=== PATIENT | female | born 1965 | race Caucasian/White ===

== ENCOUNTER 2019-10-12 12:48 | Outpatient (CLI) | payer MEDICARE, OTHER ==
--- NOTE | 2019-10-12 15:10 | CT ---
CT CHEST WITHOUT CONTRAST: Axial tomograms are obtained with multiplanar reconstruction. Low-dose protocol was followed followi ng a screening protocol. INDICATION: History of tobacco use. Long history of smoking. COMPARISON: No comparison. FINDINGS: There is a 10 mm calcified nodule in the left apical region peripherally abutting the pleural surface . Mild chronic parenchymal changes. Interstitial thickening is prominent in the posterior lower lobes. No infiltrate or effusion. There is a pleural-based nodule measuring 7-8 mm medial aspect superior segment right lower lobe imag e 72 axial. A 4 mm nodule in the left lower lobe near the diaphragm, image 123 axial. A 3 mm nodule along the fissure laterally left mid lung, image 74 axial. Mediastinum unremarkable. Upper abdomen unremarkable. Osseous structures unremarkable. IMPRESSION: Lung RADS 3. Recommend followup noncontrast CT chest in 6 months to confirm stability of the 8 mm no dule described above. POS: AGW
== END 2019-10-12 12:49 | disposition home or self-care (01) ==
LOC: BICCT 12:48
PROVIDERS: ATTEND Family Medicine Sports Medicine
DX: Z12.2 Encounter for screening for malignant neoplasm of respiratory organs (principal); F17.210 Nicotine dependence, cigarettes, uncomplicated; R91.8 Other nonspecific abnormal finding of lung field
CPT/HCPCS: G0297

== ENCOUNTER 2020-05-12 13:50 | Outpatient (CLI) | payer MEDICARE, MEDICAID ==
--- NOTE | 2020-05-12 14:46 | CT ---
Chest CT without contrast: 05/12/2020 COMPARISON: Low-dose screening chest CT 10/12/2019 HISTORY: History of tobacco use, long history of smoking, reevaluate pulmonary nodule. TECHNIQUE: Routine noncontrast enhanced chest CT obtained at 5 mm intervals with 3 mm coronal and sag ittal reformatted imaging. In addition, high-resolution axial imaging was obtained with the patient in the supine and prone positions. FINDINGS: Lack of contrast limits assessment of the imaged viscera, the vascular structures, and for lymphadenopathy. Coronary arterial calcification and/or stent material present. Imaged upper abdomen grossly unremarkable. No discrete lymphadenopathy. No pleural, pericardial, or m ediastinal fluid. Stable lateral subcentimeter calcified granuloma in left upper lobe on image 12 and stable 2-3 mm nod ule and lateral aspect of left upper lobe on axial image 18. There is a left lower lobe nodule inferiorly measuring 4-5 mm, unchanged. There is a stable nodule in the medial superior segment of th e right lower lobe measuring in the 7-8 millimeters range. No discrete nodule on the right. High-resolution imaging demonstrates an area of stable subpleural cystic change and increased linear interstitial density within the superior segment of bilateral lower lobes, right greater than left. Stable subpleural cyst in the right costophrenic angle region measuring 2.1 cm. Stable scattered smal l areas of subpleural cystic change noted within the anterior and medial aspect of the lung apices. Review of the osseous structures demonstrates no acute findings. No bronchiectasis noted. IMPRESSION: Stable bilateral pulmonary nodules as detailed above. A 6 month follow-up low-dose screen ing chest CT is advised.
== END 2020-05-12 13:51 | disposition home or self-care (01) ==
LOC: BICCT 13:50
PROVIDERS: ATTEND Family Medicine Sports Medicine
DX: R91.8 Other nonspecific abnormal finding of lung field (principal)
CPT/HCPCS: 71250

== ENCOUNTER 2021-09-14 09:11 | Outpatient (CLI) | payer MEDICARE, MEDICAID | END 2021-09-14 09:12 | disposition home or self-care (01) | LOC: BICMAMMO 09:11 | PROVIDERS: ATTEND Specialist | DX: Z12.31 Encounter for screening mammogram for malignant neoplasm of breast (principal); J45.998 Other asthma | CPT/HCPCS: 71046; 77063; 77067 ==

== ENCOUNTER 2023-11-15 08:52 | Outpatient (CLI) | payer MEDICARE | END 2023-11-15 08:53 | disposition home or self-care (01) | LOC: BICMAMMO 08:52 | PROVIDERS: ATTEND Specialist | DX: Z12.31 Encounter for screening mammogram for malignant neoplasm of breast (principal); M85.9 Disorder of bone density and structure, unspecified; M81.0 Age-related osteoporosis without current pathological fracture; Z80.3 Family history of malignant neoplasm of breast | CPT/HCPCS: 77063; 77067; 77080 ==